=== PATIENT | male | born 1955 | race Caucasian/White ===

== ENCOUNTER 2022-04-28 00:38 | Day surgery (SDC) | payer OTHER, SELFPAY ==
[2022-04-14 15:11] VITALS: BMI 26.9
[2022-04-28 08:15] VITALS: BP 165/93; PULSE 72; RESP 19; TEMP 36.1; O2SAT 99; BMI 28.1
--- NOTE | 2022-04-28 08:33 | PM.HPGS ---
History of Present Illness History of Present Illness Consent: Risks, benefits, and alternatives have been discussed and questions answered. Patient agrees to proceed with procedure. Chief complaint: neoplasm screening Narrative: Len Leonard is a 67 year old male Presents for screening colonoscopy. Patient's current weight appetite bowel movements are normal. Patient denies abdominal pain. He has had no bleeding. Family history is significant his mother had colon cancer. Patient does report a colon polyp bike screening colonoscopy 6 years ago. Patient presents today for screening colonoscopy. Review of Systems Review of Systems: Review of systems noncontributory. [facility] Past Medical History Medical History (Updated 04/28/22 @ 08:35 by eLn Dubose MD) Abnormal colonoscopy 06/06 Polyp Repeat 06/11 Surgical History Surgical History (Updated 04/05/21 @ 08:02 by Cornelius Montanez MD) History of inguinal hernia repair Left 2014 Family History Family History (Updated 04/05/21 @ 07:57 by Cornelius Montanez MD) Mother Family history of respiratory disorder Patient's mother is Parkinsons disease Father Family history of heart disease in male family member before age 55 Hypertension Other Diabetes mellitus Family history of cardiovascular disease Family history of malignant neoplasm Social History Social History (Updated 04/06/21 @ 10:15 by Lori Mcfadden MA) Smoking packs per day: 1 Smoking cigarettes per day: 20.0 Years smoked: 5 Smoking pack-years: 5.00 Smoking status: Former smoker Alcohol intake: current Drinks per week: 5 Alcohol use details: on occasion Substance use: never Substance use type: does not use Living arrangements: alone Gender identity (if verbalized by the patient): Male Sexual Orientation (if Verbalized by the Patient): Straight or Heterosexual Spiritual care concerns: No Agree to blood products: Yes Meds Home Medications and Allergies Home Medications Medication Instructions Recorded Confirmed Type cholecalciferol (vitamin D3) 25 25 mcg PO DAILY 04/06/21 04/14/22 History mcg (1,000 unit) capsule glucosamine 500 1 cap PO DAILY 04/06/21 04/14/22 History fg-qnmadlxfs-mgekhxzb comp 400 mg-D3 667 unit-C-Mn cap (Lixoopnziru-Jjrizjciqno-U6(C-manganese)) zlwfyaoe-fnt-udyhg acid 300 1 tablet PO DAILY 04/06/21 04/14/22 History mcg-lycopene 600 mcg-lutein 300 mcg tablet (Men 50 Plus Multivitamin) naproxen sodium 220 mg capsule 220 mg PO .as needed PRN Pain 04/06/21 04/14/22 History (Aleve) lisinopril 20 mg tablet 20 mg PO DAILY #90 tabs 02/28/22 04/14/22 Rx sodium,potassium,mag sulfates 17.5 See Rx Instructions PO .COMPLEX 03/28/22 04/14/22 Rx gram-3.13 gram-1.6 gram oral soln #354 mL (Suprep Bowel Prep Kit) atorvastatin 40 mg tablet See Rx Instructions .Route 04/24/22 Rx .COMPLEX #90 tabs Allergies Allergy/AdvReac Type Severity Reaction Status Date / Time No Known Allergies Allergy Verified 04/14/22 15:09 Vital Signs Vital Signs - 24 hr 04/28/22 08:15 Temperature 97 F L Pulse Rate 72 Respiratory Rate 19 Blood Pressure 165/93 H Pulse Oximetry 99 Oxygen Delivery Room Air Exam Narrative: Physical exam reveals patient to be alert. Vital signs stable. HEENT exam is unremarkable. Patient is anicteric. Lungs are clear to auscultation and percussion. Heart is without murmur or extra sounds. Abdomen bowel sounds are present soft nontender with no organomegaly. Digital external rectal exam is normal. Assessment and Plan Assessment and plan (1) History of colon polyps: Code(s): Z86.010 - Personal history of colonic polyps Status: Acute Assessment and Plan: Patient has a history of adenomatous colon polyp removed from the colon 6 years ago. Follow-up colonoscopy advised now on a 5 year intervals. (2) Leah
[2022-04-28] MEDS: LACTATED RINGERS 1,000 ML 150 ML IV CONT (08:35)
--- NOTE | 2022-04-28 08:53 | WPDANESEPPF ---
Anes - Initial Pre Proc Eval Procedure: Operation Date: 04/28/22 09:00 Proposed Procedures p Screening Colonoscopy - Len Dubose MD Date/Time: 04/28/22 08:53 Surgeon: Len Dubose MD Pre Op Diagnosis: neoplasm screening Patient Data Age: 67 Gender: M Height: 1.83 m Weight: 94.1 kg Last Vital Signs Temp 97 F L 04/28/22 08:15 Pulse 72 04/28/22 08:15 Resp 19 04/28/22 08:15 BP 165/93 H 04/28/22 08:15 Pulse Ox 99 04/28/22 08:15 O2 Del Method Room Air 04/28/22 08:15 Allergies Allergy/AdvReac Type Severity Reaction Status Date / Time No Known Allergies Allergy Verified 04/14/22 15:09 Home Medications Medication Instructions Recorded Confirmed Type cholecalciferol (vitamin D3) 25 25 mcg PO DAILY 04/06/21 04/14/22 History mcg (1,000 unit) capsule glucosamine 500 1 cap PO DAILY 04/06/21 04/14/22 History dt-fckjffjiu-sfanfqga comp 400 mg-D3 667 unit-C-Mn cap (Iunjuygocsi-Vjuxoteusgq-L7(C-manganese)) degfyvcf-mhd-gvbci acid 300 1 tablet PO DAILY 04/06/21 04/14/22 History mcg-lycopene 600 mcg-lutein 300 mcg tablet (Men 50 Plus Multivitamin) naproxen sodium 220 mg capsule 220 mg PO .as needed PRN Pain 04/06/21 04/14/22 History (Aleve) lisinopril 20 mg tablet 20 mg PO DAILY #90 tabs 02/28/22 04/14/22 Rx sodium,potassium,mag sulfates 17.5 See Rx Instructions PO .COMPLEX 03/28/22 04/14/22 Rx gram-3.13 gram-1.6 gram oral soln #354 mL (Suprep Bowel Prep Kit) atorvastatin 40 mg tablet See Rx Instructions .Route 04/24/22 Rx .COMPLEX #90 tabs Patient hx anesthesia problems: none Family hx anesthesia problems: none Results Review: All pre-operative results and documents have been reviewed as part of the pre-operative evaluation. [facility] Past Medical History Medical History (Updated 04/28/22 @ 08:35 by Len Dubose MD) Abnormal colonoscopy 06/06 Polyp Repeat 06/11 Surgical History Surgical History (Updated 04/05/21 @ 08:02 by Cornelius Montanez MD) History of inguinal hernia repair Left 2015 Family History Family History (Updated 04/05/21 @ 07:57 by Cornelius Montanez MD) Mother Family history of respiratory disorder Patient's mother is Parkinsons disease Father Family history of heart disease in male family member before age 55 Hypertension Other Diabetes mellitus Family history of cardiovascular disease Family history of malignant neoplasm Social History Social History (Updated 04/06/21 @ 10:15 by Lori Mcfadden MA) Smoking packs per day: 1 Smoking cigarettes per day: 20.0 Years smoked: 5 Smoking pack-years: 5.00 Smoking status: Former smoker Alcohol intake: current Drinks per week: 5 Alcohol use details: on occasion Substance use: never Substance use type: does not use Living arrangements: alone Gender identity (if verbalized by the patient): Male Sexual Orientation (if Verbalized by the Patient): Straight or Heterosexual Spiritual care concerns: No Agree to blood products: Yes Anes - Eval Final PreProcedure Day of Procedure 04/28/22 08:53 Patient weight: normal Heart: regular rate and rhythm Lungs: clear to auscultation Airway: Mallampati scale class II Neurological: alert and oriented Last oral intake: >/= 8 hours ASA classification: II Emergent: no Anesthetic plan: proceed Anesthesia type and monitoring: general GIVS and standard monitoring Results Review: All pre-operative results and documents have been reviewed as part of the pre-operative evaluation. Informed Consent: The patient's anesthetic plan and its attendant risks and benefits were discussed with the patient/family/POA. Questions were solicited and answers provided to the satisfaction of the patient/family/POA.
[2022-04-28] MEDS: SIMETHICONE ORAL SUSPENSION 20 MG/0.3 ML 30 ML BOTTLE 0.6 ML IRRIGATION (09:09)
[2022-04-28 09:17] VITALS: BP 104/66; PULSE 78; RESP 20; O2SAT 97
[2022-04-28 09:27] VITALS: BP 110/68; PULSE 74; RESP 18; O2SAT 97
[2022-04-28 09:37] VITALS: BP 143/96; PULSE 70; RESP 20; O2SAT 99
== END 2022-04-28 09:48 | disposition home or self-care (01) ==
PROVIDERS: PCP Family Medicine Adolescent Medicine; Visit Provider Internal Medicine Gastroenterology
PROC: 0DJD8ZZ Inspection of Lower Intestinal Tract, Via Natural or Artificial Opening Endoscopic (ICD-10-PCS; CPT 45378; principal; 2022-04-28 09:00)
DX: Z12.11 Encounter for screening for malignant neoplasm of colon (principal); K57.30 Diverticulosis of large intestine without perforation or abscess without bleeding; Z86.010 Personal history of colon polyps; Z80.0 Family history of malignant neoplasm of digestive organs; Z87.891 Personal history of nicotine dependence
CPT/HCPCS: G0105; J2704; J7120

== ENCOUNTER 2023-04-17 11:21 | Outpatient (CLI) | payer OTHER, SELFPAY ==
[2023-04-17 12:13] LABS: Alanine Aminotransferase 28 U/L (6-50); Albumin Level 4.4 g/dL (3.5-5.1); Alkaline Phosphatase 65 U/L (38-126); Anion Gap 5 mmol/L (8-16); Aspartate Amino Transferase 33 U/L (17-59); Bilirubin,Total 0.8 mg/dL (0.2-1.3); Blood Urea Nitrogen 12 mg/dL (9-20); Calcium 9.4 mg/dL (8.4-10.2); Carbon Dioxide 28 mmol/L (22-30); Chloride 104 mmol/L (98-107); Cholesterol 162 mg/dL (0-200); Estimated Glomerular Filt Rate > 60; Glucose 101 mg/dL (65-110); HDL Direct 91 mg/dL; Potassium 4.7 mmol/L (3.4-5.0); Sodium 137 mmol/L (137-145); Triglycerides 95 mg/dL (<150)
[2023-04-17 12:23] LABS: LDL Cholesterol Direct 64 mg/dL
== END 2023-04-17 11:22 | disposition home or self-care (01) ==
LOC: ANHLAB 11:25
PROVIDERS: PCP Family Medicine Adolescent Medicine; Visit Provider Family Medicine Adolescent Medicine
DX: E78.00 Pure hypercholesterolemia, unspecified (principal); I10 Essential (primary) hypertension
CPT/HCPCS: 36415; 80053; 80061

== ENCOUNTER 2024-04-03 08:43 | Outpatient (CLI) | payer OTHER, SELFPAY ==
--- NOTE | ~2024-04-03 | XR_ITS ---
EXAMINATION: [id number]_[id number]_CR DATE: 04/03/2024 09:26 INDICATION: Left knee pain. TECHNIQUE: 2 views of left knee including weight-bearing views were obtained. COMPARISON: None. FINDINGS: Alignment is normal. No fracture. There is mild osteoarthritis of patellofemoral compartmen t. There is an enthesophyte at the proximal attachment of medial collateral ligament. No knee joint e ffusion. IMPRESSION: 1. Mild left knee osteoarthritis. Reviewed, dictated and finalized at location A. [facility] S[facility]
--- NOTE | ~2024-04-03 | XR_ITS ---
Right Knee Technique: AP, lateral, and sunrise views were obtained. Clinical History: Pain Findings: No fracture or dislocation is seen. Osseous alignment is anatomic. Minimal degenerative molly nge present at any. Soft tissues are unremarkable. No joint effusion is seen. Impression: Minimal degenerative change. No acute abnormality. Reviewed, dictated and finalized at [facility]. ERER Impression: Minimal degenerative change. No acute abnormality.
--- OUTSIDE RECORDS SUMMARY | 2024-04-03 09:11 | XMS_ITS | Clinical Summary ---
Author Organization [facility] [employer] Address [address] [place] [address] Care Team Providers Care Dye House Worker Name Role Phone Cornelius Montanez MD Primary Care Provider + Ramiro Garcia MD Unavailable [phone] Source Comments [facility] [employer],non-owned Affiliates and Associated Physician Practices is amultiple site organization consisting of ambulatory clinics and hospital sitesin [place] and [place]. This disclosure is being madepursuant to the Care Everywhere program and may not contain all informatio navailable regarding this patient. Last updated 17.[facility] [employer] Allergies No known active allergies Medications * Be aware that medications may not be up to date on this document. Alwaysverify current medications with the patient. Medication Sig Dispensed Refills Start Date End Date Status lisinopril (PRINIVIL; ZESTRIL) 20 MG tablet Take 1 tablet by mouth once daily 03/23/2020 Active ORACEA 40 MG capsule Take 1 capsule by mouth once daily 04/30/2020 Active sildenafil (VIAGRA) 100 MG tablet Take 1 tablet by mouth once daily 05/07/2020 Active meloxicam (MOBIC) 15 MG tablet Take 1 (one) tablet by mouth once daily 30 tablet 5 05/11/2020 Active Active Problems Problem Noted Date Diagnosed Date Primary osteoarthritis of right knee 05/11/2020 Social History Tobacco Use Types Packs/Day Years Used Date Smoking Tobacco: Never Smokeless Tobacco: Never Sex and Gender Information Value Date Recorded Sex Assigned at Not on file Gender Identity Not on file Sexual Orientation Not on file Last Filed Vital Signs Vital Sign Reading Time Taken Comments Blood Pressure - - Pulse - - Temperature - - Respiratory Rate - - Oxygen Saturation - - Inhaled Oxygen Concentration - - Weight 83.9 kg (185 lb) 05/11/2020 3:22 PM CDT Height 182.9 cm (6') 05/11/2020 3:22 PM CDT Body Mass Index 25.09 05/11/2020 3:22 PM CDT Plan of Treatment Health Maintenance Due Date Last Done Comments COLOGUARD (AGES 45-75) - COL ON CA SCREENING 1953 COLON MONITORING 1953 COLONOSCOPY - COLON CA SCREENING 1953 CT COLONOGRAPHY - COLON CA SCREENING 1953 Colorectal Cancer Screening 1953 FIT - COLON CA SCREENING 1953 FLEX SIG - COLON CA SCREENING 1953 LIPID TESTING 1953 HEPATITIS C SCREENING 02/08/1971 DTAP/TDAP/TD VACCINES (1 - Tdap) 02/13/1972 PNEUMOCOCCAL VACCINE 50+ (1 of 1 - PCV) 2003 ZOSTER VACCINE (1 of 2) 2003 SCREENING FOR DIABETES 05/11/2020 COVID-19 VACCINE (1 - 2023-2 5 season) 2023 INFLUENZA VACCINE (#1) 2023 DEPRESSION SCREENING 02/21/2024 Respiratory Syncytial Virus (RSV) Vaccine Pt: or over 60 yrs (1 - 1-dose 75+ series) 02/13/2028 HEPATITIS B VACCINE Aged Out No longe r eligible based on patient's age to complete this topic HIB VACCINE Aged Out No longer eligi ble based on patient's age to complete this topic HPV VACCINE Aged Out No longer eligi ble based on patient's age to complete this topic MENINGOCOCCAL (Group B) VACCINE Aged Out No longer eligible based on patient's age to complete this topic MENINGOCOCCAL VACCINE Aged Out No noah portillo eligible based on patient's age to complete this topic Care Teams Dye House Worker Relationship Specialty Start Date End Date Cornelius Montanez MD [address] [facility] [address] [place] [address] PCP - General Family Medicine 05/11/20 [place] [id number] [facility] [address] [place] [address] Surgeon Orthopedic Surgery 05/11/20
--- OUTSIDE RECORDS SUMMARY | 2024-04-03 09:11 | XMS_ITS | Clinical Summary ---
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 Gender Identity Not on file Sexual Orientation Not on file Plan of Treatment Health Maintenance Due Date Last Done Comments DTAP/TDAP/TD VACCINES (1 - Tdap) 02/13/1972 COLORECTAL SCREENING 1998 Colorectal Cancer Screening 1998 FIT-DNA Q 3 years 1998 FIT/FOBT Q 1 year 1998 Flex Sig/CT Colonography Q 5 years 1998 PNEUMOCOCCAL VACCINE 65+ YEARS (1 of 1 - PCV) 02/13/20 03 ZOSTER VACCINE (1 of 2) 2003 INFLUENZA VACCINE (#1) 2023 RSV VACCINE (60+ or ) (1 - 1-dose 75+ series) 02/13/[address] [place] [address] BLUE ACCESS/TRUE BLUE PPO Care Teams Frame Aligner Relationship Specialty Start Date End Date Cornelius Montanez MD [address] [address] PCP - General Family Practice 03/14/18
--- OUTSIDE RECORDS SUMMARY | 2024-04-03 09:11 | XMS_ITS | Patient Health Summary ---
Author Organization [facility] Address [address] [place] [address] Care Team Providers Care Wrap Checker Name Role Phone Cornelius Montanez MD Primary Care Provider + Ramiro Garcia MD Unavailable [phone] Note from [facility],non-owned Affiliates and Associated Physician Practices is amultiple site organization consisting of ambulatory clinics and hospital sitesin [place], [place], [place] and [place]. This disclosure is being madepursuant to the Care Everywhere program and may not contain all information available regarding this patient. Last updated 17.[facility] Allergies No known active allergies Medications * Be aware that medications may not be up to date on this document. Alwaysverify current medications with the patient. * lisinopril (PRINIVIL; ZESTRIL) 20 MG tablet(Started 03/23/2020) Take 1 tablet by mouth once daily * ORACEA 40 MG capsule(Started 04/30/2020) Take 1 capsule by mouth once daily * sildenafil (VIAGRA) 100 MG tablet(Started 05/07/2020) Take 1 tablet by mouth once daily * meloxicam (MOBIC) 15 MG tablet(Started 05/11/2020) Take 1 (one) tablet by mouth once daily 5 refills by 05/11/2021 Active Problems Problem Noted Date Diagnosed Date [...] Mass Index 25.09 05/11/2020 3:22 PM CDT Procedures * XR KNEE RIGHT 3VW(Performed 05/11/2020) Performed for Right knee pain, unspecified chronicity Results * XR KNEE RIGHT 3VW (05/11/2020 3:32 PM CDT) Anatomical Region Laterality Modality Lower Extremity Computed Radiogr aphy Narrative 05/11/2020 3:33 PM CDT Jacinta Manuel, RT(R) 05/21/2020 12:02 PM See progress notes for results Ramiro Garcia MD DIAGNOSTIC IMAGING O RDERABLES Care Teams Wrap Checker Relationship Specialty Start Date End Date Cornelius Montanez MD [address] [facility] [address] [place] [address] PCP - General Family Medicine 05/11/20 [place] [address] [facility] [address] [place] [address] Surgeon Orthopedic Surgery 05/11/20
--- OUTSIDE RECORDS SUMMARY | 2024-04-03 09:11 | XMS_ITS | Referral Summary ---
Author Organization [facility] [employer] Address [address] [place] [address] Care Team Providers Care Turner Machine Operator Name Role Phone Cornelius Montanez MD Primary Care Provider + Ramiro Garcia MD Unavailable [phone] Source Comments [facility] [employer],non-owned Affiliates and Associated Physician Practices is amultiple site organization consisting of ambulatory clinics and hospital sitesin [place], [place], [place] and [place]. This disclosure is being madepursuant to the Care Everywhere program and may not contain all information available regarding this patient. Last updated 17.[facility] [employer] Allergies No known active allergies Medications * [...] 05/11/2020 3:22 PM CDT Plan of Treatment Not on file Care Teams Turner Machine Operator Relationship Specialty Start Date End Date Cornelius Montanez MD [address] [facility] [address] [place] [address] PCP - General Family Medicine 05/11/20 [place] [address] [place] [address] Surgeon Orthopedic Surgery 05/11/20
== END 2024-04-03 08:44 | disposition home or self-care (01) ==
PROVIDERS: PCP Family Medicine Adolescent Medicine; Visit Provider Orthopaedic Surgery
DX: M25.562 Pain in left knee (principal); M25.561 Pain in right knee
CPT/HCPCS: 73560; 73562

== ENCOUNTER 2024-06-06 09:54 | Outpatient (CLI) | payer OTHER, SELFPAY ==
--- OUTSIDE RECORDS SUMMARY | 2024-06-06 10:40 | XMS_ITS | Clinical Summary ---
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 Gender Identity Not on file Sexual Orientation Not on file Plan of Treatment Health Maintenance Due Date Last Done Comments DTAP/TDAP/TD VACCINES (1 - Tdap) 02/13/1972 COLORECTAL SCREENING 1998 Colorectal Cancer Screening 1998 FIT-DNA Q 3 years 1998 FIT/FOBT Q 1 year 1998 Flex Sig/CT Colonography Q 5 years 1998 PNEUMOCOCCAL VACCINE 50+ YEARS (1 of 1 - PCV) 02/13/20 03 ZOSTER VACCINE (1 of 2) 2003 INFLUENZA VACCINE (#1) 2023 RSV VACCINE (60+ or ) (1 - 1-dose 75+ series) 02/13/[address] [place] [address] [address] [place] [address] BLUE ACCESS/TRUE BLUE PPO Care Teams Product Blending Supervisor Relationship Specialty Start Date End Date Cornelius Montanez MD PCP - General Family Practice 03/14/18
--- OUTSIDE RECORDS SUMMARY | 2024-06-06 10:40 | XMS_ITS | Clinical Summary ---
Author Organization [facility] [employer] Address [address] [facility] [place] [address] Care Team Providers Care Regulatory Affairs Coordinator Name Role Phone Cornelius Montanez MD Primary Care Provider + Ramiro Garcia MD Unavailable Source Comments [facility] [employer],non-owned Affiliates and Associated Physician Practices is amultiple site organization consisting of ambulatory clinics and hospital sitesin [place]. This disclosure is being madepursuant to the Care Everywhere program and may not contain all information available regarding this patient. Last updated 17.[facility] [employer] Allergies No known active allergies Medications * Be aware that medications may not be up to date on this document. Alwaysverify current medications with the patient. 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 Gender Identity Not on file Sexual Orientation [...] VACCINE (1 - 2023-2 5 season) 2023 DEPRESSION SCREENING 02/21/2024 INFLUENZA VACCINE (Season Ended) 2024 Respiratory Syncytial Virus (RSV) Vaccine Pt: or [...] to complete this topic MENINGOCOCCAL (Group B) VACC INE SHARED DECISION-MAKING Aged Out No longer eligibl e based on patient's age to complete this topic MENINGOCOCCAL GROUPS A/C/Y/W VACCINE Aged Out No longer eligible b ased on patient's age to complete this topic Insurance TAB[employer] Care Teams Regulatory Affairs Coordinator Relationship Specialty Start Date End Date Cornelius Montanez MD [address] [facility] [address] [place] [address] PCP - General Family Medicine 05/11/20 [place] [address] [facility] [address] [place] [address] Surgeon Orthopedic Surgery 05/11/20
--- NOTE | 2024-06-06 11:35 | ECG_ITS ---
Test Date: 2024-06-06 11:51:03 Measurements Intervals [place] Rate: 66 P: 21 DE: 200 QRS: 17 QRSD: 89 T: 3 QT: 381 QTc: 402 Interpretive Statements SINUS RHYTHM BORDERLINE ST-T WAVE ABNORMALITY- INFERIOR LEADS BASELINE ARTIFACT- AVR, AVF, V1, V4-V6 BORDERLINE ECG No previous ECG available for comparison Electronically Signed On 06-06-2024 12:00:03 CDT by Alexis Morton D.O.
[2024-06-06 12:19] LABS: Basophils Absolute Auto 0.1 K/mm3 (0.0-0.1); Basophils Percent Auto 0.5 % (0.2-1.2); Eosinophils Percent Auto 0.2 % (0-4.4); Hemoglobin 13.4 g/dL (14.0-18.0); Immature Granulocyte Absolute 0.03 K/mm3 (0.00-0.031); Immature Granulocyte Percent A 0.3 % (0-0.5); Lymphocytes Absolute Auto 1.95 K/mm3 (0.9-3.2); Lymphocytes Percent Auto 20.7 % (18.3-44.2); Mean Corpuscular HGB Conc 32.7 g/dl (32-36); Mean Corpuscular Hemoglobin 30.9 pg (26-34); Mean Corpuscular Volume 94.5 fl (80-100); Monocytes Absolute Auto 0.6 K/mm3 (0.1-0.6); Monocytes Percent Auto 6.4 % (2.6-8.5); Neutrophils Absolute Auto 6.8 K/mm3 (1.3-6.7); Neutrophils Percent Auto 71.9 % (45.5-73.1); Platelet Count Result 245 k/mm3 (150-375); Red Blood Count 4.34 M/mm3 (4.6-6.20); Red Cell Distribution Width 12.6 % (11.5-14.5); White Blood Count 9.4 K/mm3 (4.5-10.0)
[2024-06-06 12:30] LABS: Albumin Level 4.9 g/dL (3.5-5.1); Anion Gap 13 mmol/L (4-12); Blood Urea Nitrogen 14 mg/dL (9-20); Calcium 9.8 mg/dL (8.4-10.2); Carbon Dioxide 22 mmol/L (22-30); Chloride 102 mmol/L (98-107); Estimated Glomerular Filt Rate > 60; Glucose 89 mg/dL (65-110); Potassium 4.3 mmol/L (3.4-5.0); Sodium 137 mmol/L (137-145)
[2024-06-06 12:38] LABS: Urine Cotinine NEGATIVE
[2024-06-06 12:43] LABS: Hemoglobin A1C 5.4 % (<5.7)
== END 2024-06-06 09:55 | disposition home or self-care (01) ==
LOC: ANHSURGERY 09:59
PROVIDERS: PCP Family Medicine Adolescent Medicine; Visit Provider Orthopaedic Surgery
DX: Z01.818 Encounter for other preprocedural examination (principal); M17.11 Unilateral primary osteoarthritis, right knee
CPT/HCPCS: 80048; 80307; 82040; 83036; 85025; 87081; 93005

== ENCOUNTER 2024-06-27 00:28 | Day surgery (SDC) | payer OTHER, SELFPAY ==
[2024-06-06 10:25] VITALS: BP 133/83; PULSE 83; RESP 16; TEMP 36.8; O2SAT 97; BMI 27.2
--- NOTE | 2024-06-06 10:48 | PC.NURSE ---
Report to the Outpatient Waiting Room, entrance under the green pavilion located off [facility], at time ___6:00AM____ on date ___06/27/24____. Planned Procedure Time: ____7:30AM____.? Time changes happen often and if your time is changed the preop area will call you the afternoon before. - You and your visitor will be asked to self-screen and do not enter if you have any COVID symptoms. Please call surgeon if you need to reschedule. - A mask is optional within the hospital at this time. Patients may have clear liquids (water, carbonated beverages, clear teas, apple juice) until 3 hours prior to surgery (4:30AM) with a maximum of 20 ounces. - No food from midnight until time of surgery and no smoking, or chewing tobacco (or any form of nicotine). No chewing gum, candy or mints. Take only the following medications with a SIP of water on the morning of surgery: ___NONE DO NOT STOP ANY OF YOUR OTHER PRESCRIPTION MEDICATIONS PRIOR TO SURGERY EXCEPT THE FOLLOWING Hold all vitamins and supplements for 3 days per anesthesiologist.-LAST DOSE 06/23/24 Medications to discontinue per physician __HOLD ALL NSAIDS(NAPROXEN/IBUPROFEN) 7 DAYS PRE-OP PER DR ORTEZ Date to take last dose 06/19/24 Please no make-up, nail slovenian, hairspray, perfume, deodorant, or body powder the day of surgery.? No jewelry (including any body piercings) or valuables the day of surgery, leave them at home.? Please take a shower or bath the night before, or the morning of, surgery with an antibacterial soap.? Wear comfortable, loose fitting clothing.? - Jewelry must be removed prior to entering the operating room.? Rings and piercings that are not removed may be cut off. - The hospital will not accept responsibility for valuables.? - Please leave all valuables, including medications, at home the day of surgery. If you are going home after surgery, a licensed driver/refuse collector must drive you home.? - NO public transportation without another adult if you receive anesthesia. - We recommend that an adult stay with you for 24 hours following discharge. - We also recommend that you do not drive, make important decision, drink alcoholic beverages, or take any drugs that were not prescribed by your health care provider for at least 24 hours after your discharge time. Follow any additional instructions given to you from your surgeon. Telephone instructions given to ____PATIENT and asked if any additional questions and then verbalized understanding. Patient advised to call surgeon office or pre surgery nurse liaison [phone] if any additional questions.
--- NOTE | 2024-06-26 07:52 | P.HP_ITS ---
H&P: HPI History of Present Illness Date/Time: 06/26/24 07:52 Chief Complaint: Right knee DJD Narrative: 69-year-old male presents today for right total knee arthroplasty. Patient has been having symptoms in the right knee for several years. He has severe lateral compartment osteoarthritis he has been taking cjpf-dur-bskofos anti- inflammatories. He had a cortisone injection February of this year which only h elped briefly. Patient feels this point is ready proceed with total knee arthroplasty rather than continue nonsurgical treatment Review of Systems Review of Systems: All systems reviewed & are unremarkable except as noted in HPI and below PMFSH Past Medical History Medical History (Updated 06/26/24 @ 08:29 by ELMER Warner) High cholesterol Hypertension Abnormal colonoscopy 06/06 Polyp Repeat 06/11 Surgical History Surgical History History of inguinal hernia repair Left 2014 Family History Family History Mother Family history of respiratory disorder Patient's mother is Parkinsons disease Father Family history of heart disease in male family member before age 55 Hypertension Other Diabetes mellitus Family history of cardiovascular disease Family history of malignant neoplasm Social History Social History (Updated 04/03/24 @ 10:01 by Payal Schaffer [facility]) Smoking packs per day: 0.75 Smoking cigarettes per day: 15.0 Years smoked: 5 Smoking pack-years: 3.75 Smoking status: Former smoker Tobacco type: cigarettes Smoking end date: 08/20/77 Alcohol intake: current Drinks per week: 28 Alcohol use details: on occasion Substance use: never Substance use type: does not use Do You Feel Safe in your Home?: Yes Lack of Transportation: No Lack of Food: Never True Current Housing: I Have Housing Concerned About Future Housing: No Difficulty Paying Gas/Electric Bills: No Difficulty Paying for Meds: No Currently Unemployed: No Education: High School Diploma/GED Difficulty w/ Childcare or Family Care: No Living arrangements: alone Gender identity (if verbalized by the patient): Male Sexual Orientation (if Verbalized by the Patient): Straight or Heterosexual Spiritual care concerns: No Agree to blood products: Yes Meds Home Medications and Allergies Home Medications ?Medication ?Instructions ?Recorded ?Confirmed ?Type zewhxatx-sq-dermz 300 mcg-K 60 1 tablet PO DAILY 04/06/21 06/10/24 History mcg-lycop 600 mcg-lutein 300 mcg tablet (Men 50 Plus Multivitamin) atorvastatin 40 mg tablet See Rx Instructions .Route 10/22/23 06/10/24 Rx .COMPLEX #90 tabs lisinopril 20 mg tablet See Rx Instructions .Route 02/12/24 06/10/24 Rx .COMPLEX #90 tabs ibuprofen 200 mg capsule 400 mg PO Q6H PRN pain 04/03/24 06/10/24 History UROZINC 400 mg PO DAILY 06/06/24 06/10/24 History latanoprost 0.005 % eye drops 1 drp EACH EYE QPM 06/06/24 06/10/24 History sildenafil 100 mg tablet 100 mg PO DAILY PRN sexual 06/10/24 06/10/24 Rx activity #7 tabs Allergies Allergy/AdvReac Type Severity Reaction Status Date / Time No Known Allergies Allergy Verified 06/10/24 09:53 Exam Narrative: 69-year-old male pleasant. He is 5 ft 1 0 100 and lb is 2. Walks without limp. Range of motion right knee is from 5-120 degrees. He has pain posterior lateral with full flexion. No effusion in the knee. He has normal stability in the knee. No tenderness. Mild valgus alignment. Hip range of motion is full without discomfort, negative Stinchfield maneuver. Normal quad strength. Normal sensation right lower extremity. 2+ dorsalis pedis pulse palpable. No edema in the right lower extremity Resp: Auscultation: clear to auscultation bilaterally Cardio: Rate: regular rate Rhythm: regular rhythm Assessment and Plan Assessment and plan (1) Right knee DJD: Code(s): M17.11 - Unilateral primary osteoarthritis, right knee Status: Acute Assessment and Plan: 69-year-old male who has severe lateral osteoarthritis the right knee with continued symptoms. At this point patient is not feel nonsurgical treatment his benefit he him and he would like to proceed with total knee arthroplasty at this point. Surgical procedure as well as the risks and complications were discussed in detail all questions were answered and we will proceed. Patient will avoid his naproxen and any other aspirin ibuprofen products 1 week prior to surgery. He will see his primary care doctor for pre-surgical clearance per his nasal swab was negative. Hemoglobin 13.4 platelets were 245. Chem panel was all within normal limits creatinine 0.71
[2024-06-27] VITALS (17 sets, daily range): BP systolic 112–148; BP diastolic 63–86; PULSE 63–95; RESP 11–18; TEMP 36.2–37; O2SAT 92–100; BMI 27.0
--- NOTE | ~2024-06-27 | XR_ITS ---
[id number] Ordering provider: Timi Asher MD History: . POST-OP, RIGHT TKA . Comparison: None. FINDINGS: BONES: No acute fracture or dislocation. JOINT SPACES: Total knee arthroplasty. SOFT TISSUES: Postoperative changes.. IMPRESSION: No acute osseous abnormality right knee. Total knee arthroplasty with postoperative changes in the soft tissues.. Reviewed, dictated and finalized at location A.
--- OUTSIDE RECORDS SUMMARY | 2024-06-27 00:30 | XMS_ITS | Clinical Summary ---
Author Organization [facility] Address [address] [place] [address] Care Team Providers Care Instructional Coordinator Name Role Phone Cornelius Montanez MD Primary Care Provider + Ramiro Garcia MD Unavailable [phone] Source Comments [facility],non-owned Affiliates and Associated Physician Practices is amultiple site organization consisting of ambulatory clinics and hospital sitesin [place], [place], [place] and [place]. This disclosure is being madepursuant to the Care Everywhere program and may not contain all information available regarding this patient. 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
--- OUTSIDE RECORDS SUMMARY | 2024-06-27 00:30 | XMS_ITS | Clinical Summary ---
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
[2024-06-27] MEDS: LACTATED RINGERS 1,000 ML 30 ML IV CONT ×2 (06:50→11:45)
[2024-06-27] MEDS: VANCOMYCIN 1,250 MG/NS 250 ML 1,250 MG/250 ML BAG 166.67 MG IVPB (07:00)
[2024-06-27] MEDS: ACETAMINOPHEN 500 MG TABLET 1000 MG PO (07:01)
[2024-06-27] MEDS: TRANEXAMIC ACID 1,000MG/ISO100 1,000 MG/100 ML BAG 200 MG IVPB (07:01)
--- NOTE | 2024-06-27 07:18 | WPDANESEPPF ---
Anes - Initial Pre Proc Eval Procedure: Operation Date: 06/27/24 07:30 Proposed Procedures p Right Total Knee Arthroplasty - Timi Asher MD Date/Time: 06/27/24 07:18 Surgeon: Timi Asher MD Pre Op Diagnosis: oa right knee Patient Data Age: 69 Gender: M Height: 1.8 m Weight: 88.6 kg Last Vital Signs Temp 98.2 F 06/06/24 10:25 Pulse 83 06/06/24 10:25 Resp 16 06/06/24 10:25 BP 133/83 06/06/24 10:25 Pulse Ox 97 06/06/24 10:25 O2 Del Method Room Air 06/06/24 10:25 Allergies Allergy/AdvReac Type Severity Reaction Status Date / Time No Known Allergies Allergy Verified 06/10/24 09:53 Home Medications ?Medication ?Instructions ?Recorded ?Confirmed ?Type ekqvzjij-li-mpeml 300 mcg-K 60 1 tablet PO DAILY 04/06/21 06/10/24 History mcg-lycop 600 mcg-lutein 300 mcg tablet (Men 50 Plus Multivitamin) atorvastatin 40 mg tablet See Rx Instructions .Route 10/22/23 06/10/24 Rx .COMPLEX #90 tabs lisinopril 20 mg tablet See Rx Instructions .Route 02/12/24 06/10/24 Rx .COMPLEX #90 tabs ibuprofen 200 mg capsule 400 mg PO Q6H PRN pain 04/03/24 06/10/24 History UROZINC 400 mg PO DAILY 06/06/24 06/10/24 History latanoprost 0.005 % eye drops 1 drp EACH EYE QPM 06/06/24 06/10/24 History sildenafil 100 mg tablet 100 mg PO DAILY PRN sexual 06/10/24 06/10/24 Rx activity #7 tabs Laboratory Tests 06/27/24 06:39 Blood Type Pending Antibody Screen Pending Patient hx anesthesia problems: none Family hx anesthesia problems: none Results Review: All pre-operative results and documents have been reviewed as part of the pre-operative evaluation. [facility] Past Medical History Medical History High cholesterol Hypertension Abnormal colonoscopy 06/06 Polyp Repeat 06/11 Surgical History Surgical History History of inguinal hernia repair Left 2015 Family History Family History Mother Family history of respiratory disorder Patient's mother is Parkinsons disease Father Family history of heart disease in male family member before age 55 Hypertension Other Diabetes mellitus Family history of cardiovascular disease Family history of malignant neoplasm Social History Social History Smoking packs per day: 1 Smoking cigarettes per day: 20.0 Years smoked: 5 Smoking pack-years: 5.00 Smoking status: Former smoker Tobacco type: cigarettes Smoking end date: 08/20/77 Alcohol intake: current Drinks per week: 5 Alcohol use details: on occasion Substance use: never Substance use type: does not use Do You Feel Safe in your Home?: Yes Lack of Transportation: No Lack of Food: Never True Current Housing: I Have Housing Concerned About Future Housing: No Difficulty Paying Gas/Electric Bills: No Difficulty Paying for Meds: No Currently Unemployed: No Education: High School Diploma/GED Difficulty w/ Childcare or Family Care: No Living arrangements: alone Gender identity (if verbalized by the patient): Male Sexual Orientation (if Verbalized by the Patient): Straight or Heterosexual Spiritual care concerns: No Agree to blood products: Yes Anes - Eval Final PreProcedure Day of Procedure 06/27/24 07:18 Patient weight: overweight Lungs: normal air movement Airway: Mallampati scale class II Neurological: alert and oriented Last oral intake: >/= 8 hours ASA classification: III Emergent: no Anesthetic plan: proceed Anesthesia type and monitoring: general ETT and standard monitoring Results Review: All pre-operative results and documents have been reviewed as part of the pre-operative evaluation. Htn, Hyperlipidemia, essential tremor. Informed Consent: The patient's anesthetic plan and its attendant risks and benefits were discussed with the patient/family/POA. Questions were solicited and answers provided to the satisfaction of the patient/family/POA.
--- NOTE | 2024-06-27 07:33 | WPDHPUPDATE1 ---
History and Physical Update Update Date/Time: 06/27/24 07:33 History and Physical has been reviewed, including an updated exam of the patient. There are NO changes in the patient's condition. Risks, benefits, and alternatives have been discussed and questions answered. Patient agrees to proceed with procedure.
[2024-06-27] MEDS: ceFAZolin 2 GM/D5W 50 ML 2 GM/50 ML BAG IVPB ×3 (07:44→22:03)
[2024-06-27] MEDS: SODIUM CHLORIDE 0.9% IV 37.7 ML, MORPHINE SULFATE INJ (*CRX) 2 MG, ROPivacaine HCL 1% 2... INFILTRATE (08:23)
[2024-06-27] MEDS: ceFAZolin SODIUM 1 GM VIAL 2 GM IV PUSH (10:48)
[2024-06-27] MEDS: TRANEXAMIC ACID 1,000 MG/10 ML AMPUL 1000 MG IV PUSH (10:52)
--- NOTE | 2024-06-27 11:33 | W.PM.PROC2 ---
Procedure Note - Detailed Date of Procedure 06/27/24 Pre-op Diagnosis oa right knee Post-op Diagnosis Same Procedure Performed Right total knee arthroplasty Surgeon Timi Asher MD Director Of Consulting Services Brandy Anesthesia General Description of Procedure Patient was brought to the operating room and general anesthesia was administered. He received 2 g of Ancef weight based vancomycin 1 g of TXA preoperatively and the right knee was prepped draped usual fashion. Under anesthesia he had about a 5 or 6 degree flexion contracture. His valgus deformity partially corrected. Limb was exsanguinated tourniquet elevated to 250 mmHg. A 7 in longitudinal midline incision was used and a vastus medialis splitting approach utilizing splitting the vastus medialis at the level of the superior pole patella. Partial excision of infrapatellar fat pad was performed. Quadriceps synovectomy carried out suprapatellar fat pad excised. The patella had normal articular cartilage except for the far medial facet had wear. I felt it was very suitable for non resurfacing. A guide sonu was inserted on femoral canal after aspiration of canal contents. Using the 5 degree valgus cutting bushing with an entrance site ideal to the low point of the trochlear groove, 10 mm of bone was removed the distal femur. This removed about 5 or 6 from the lateral side. Next the tibial plateau was cut. Cut was made perpendicular to the axis of the tibia. This was made just under the articular cartilage of the posterior aspect of the medial tibial plateau which caused the cut to be under the low point of the where area of the lateral tibial plateau. Discus remnants were excised and the PCL was recessed. Flexion gap was assessed and measured a tight 8 mm medially and 14 or 15 mm laterally. The femoral sizing guide was applied the distal femur and 7? seemed to be externally rotated relative to [place]ites[place] line and 6? matched it better. Posterior referencing pinholes were placed at 6? of external rotation relative to the posterior femoral condyles. Size 70 cutting block was applied. This floated off the anterior cortex a couple of mm AP and chamfer cuts were made. The trial component fit line to line medial to lateral. The tibial trial was inserted in flexion and we noted that the medial side was noticeably tighter than the lateral side still. The tibia was subluxed anteriorly with care to taken to protect the medial capsular insertion and the tibia was sized to a size 75 vanguard. At the proper rotation this fit line to line posterolateral to anteromedial. This was punched and we trialed. The 10 insert was too loose at 90? particularly laterally. The 11 was more appropriate but was tight medially with almost no translation with anterior posterior drawer at 90? medially and this distracted the lateral side open a little bit. I did not feel this was acceptable and I felt we needed to apply some additional external rotation to the femur. We removed the medial fixation pin from the size 67.5 cutting block and impacted the lateral and in the posterior incision in hole and externally rotated about 1-1/2 degrees so that this would take an additional 1/2 mm of bone off of the posterior aspect of the medial femoral condyle to balance the flexion gap better. AP and chamfer cuts were revised. The size 67.5 femoral component fit nicely and on trialing with the 11 insert we now had appropriate balance with 1 mm of medial opening 2 mm of lateral opening at 90? valgus and varus stress. However we were tight in extension. There is no play medially or laterally and we lacked about 5 or 7?. External 2 mm of bone removed from the distal femur chamfer cuts revisited and residual posterior femoral bone removed at this time. Central posterior capsular release was performed. This time on read trialed on the knee still lacked a few degrees of extension but had 2 mm of play medially no play laterally. Therefore a posterolateral release as a kenny the level of the tibial cut surface between the popliteus tendon and the lateral collateral and over the surface of the lateral collateral and then ileal tibial band released transversely 1 cm proximal cut surface of the tibia. Also, a more thorough posterior capsular release was performed from the medial to the lateral origins of the medial lateral heads of the gastrocnemius. With this done on retrialing the knee had almost full extension but still had a bounce test that was positive. In this position there was a mm of opening medially and laterally so it still seemed fairly tight therefore we removed an additional 1 mm of bone from the distal femur revised chamfer cuts and on read trialing now the knee came out to full extension with negative bounce, 1- 2 mm of medial and lateral opening in full extension and with the arthrotomy approximated with towel clips there is still absence of any bounce on testing. [place] flexion was to 135 appropriate stability throughout. The tourniquet had been let down at 90 minutes at this point I then was re-exsanguinated her get elevated to 275 mmHg. Leg her drilled the femur the bony surfaces irrigated step shows used to make multiple perforations in the tibial plateau and distal femur. Bone quality was excellent. The bony surfaces were thoroughly irrigated and dried. Two batches of methylmethacrylate 1 with gentamicin powder used. Cement immediately applied the size 75 vanguard tibial component and a 67.5 right cruciate retaining femoral component. Cement applied the tibial plateau and the canal pressurized tibial component fully seated cement applied the femur the femoral component fully seated the knee brought into extension with a 12 mm head and insert. Knee brought in extension for pressurization cement tourniquet was released total tourniquet time 105 minutes. After cement hardening excess cement was sought for removed and hemostasis was achieved. We trialed the 11 insert and I thought this felt a little bit loose globally in both flexion extension. We trialed a 12 which had a much better feel to it to anterior posterior drawer and allowed full extension with negative bounce 1 mm medial and lateral opening appropriate anterior drawer stability at 90? allowing 135 of gravity flexion with no anterior drawer at that position. We chose the 12 insert which was placed locked with a locking pin range of motion stability patellar tracking reconfirmed. Local anesthetic cocktail was injected in the periarticular soft tissues. Wound again irrigated with antibiotic solution arthrotomy closed with 2. Vicryl 1. Unidirectional barbed Stratafix suture the split with 1. Vicryl. Skin closed with 2 subcutaneous Vicryl 3-0 subcuticular Monocryl and glue. EBL is 250 cc. He received extra 2 g of Ancef 1 g TXA and I will closure. There were no complications he was transferred postop recovery in stable condition. [facility] Billing Surgery - Charge Forward: Surgery Billing (Right total knee replacement)
--- NOTE | 2024-06-27 11:53 | PM.OP ---
Procedure Note - Brief Procedure Note - Brief Date of procedure: 06/27/24 oa right knee Procedure performed: Right total knee arthroplasty Surgeon: ELMER Warner Findings: 69-year-old male and right total knee arthroplasty on 06/27. I was involved in the procedure including positioning the patient on the OR table and 1st assisting through the time surgery. Total time spent was 3-1/2 hours
--- NOTE | 2024-06-27 12:20 | SUR.PHASEI ---
1145 PATIENT DIAPHORETIC WHEN ARRIVED FROM OR; COOL COMPRESS TO FACE/SCALP; DENIES NAUSEA. BP WNL. 1220 NO LONGER DIAPHORETIC.
[2024-06-27] MEDS: fentaNYL CITRATE INJ (*CRX) 100 MCG/2 ML VIAL 25 MCG IV PUSH (13:05)
--- NOTE | 2024-06-27 14:42 | ADMGEN ---
This patient, Len Leonard, was admitted to -. Patient/family oriented to hospital policies and general routines including ID bracelet, bed and alarms, visiting hours, pain management, procedures, bathroom and other care routines, personal items, smoking policy, room service/diet, and visiting hours. Information on how to activate the Rapid Response Team has been discussed. Patient/Family are encouraged to report perceived risks to care and to ask questions if they do not understand what they are told or what they should do.
[2024-06-27] MEDS: SODIUM CHLORIDE 0.9% IV 1,000 ML 125 ML IV CONT (15:31)
[2024-06-27] MEDS: oxyCODONE HCL (*CRX) 5 MG TAB IR PO ×3 (15:31→21:52)
[2024-06-27] MEDS: ACETAMINOPHEN 325 MG TABLET PO ×3 (15:31→21:52)
--- NOTE | 2024-06-27 16:13 | P.CONIM_ITS ---
Assessment and Plan Assessment and plan (1) Right knee DJD: Qualifiers: Osteoarthritis type: primary Qualified Code(s): M17.11 - Unilateral primary osteoarthritis, right knee Code(s): M17.11 - Unilateral primary osteoarthritis, right knee Status: Acute Assessment and Plan: -right total knee arthroplasty on 06/27 - ambulate with assistance and up to chair - use IS - neurovasc checks - see order for intervals - SCDs - antiemetic p.r.n., analgesics p.r.n. - monitor labs in AM - CBC and BMP - bowel regimen: docusate/senna, polyethylene glycol - PT/OT evaluation and treatment (2) Hypercholesterolemia: Code(s): E78.00 - Pure hypercholesterolemia, unspecified Status: Chronic Assessment and Plan: - continue atorvastatin 40 mg daily (3) Essential (primary) hypertension: Code(s): I10 - Essential (primary) hypertension Status: Chronic Assessment and Plan: - chronic, currently 137/80 - hold lisinopril 20 mg daily - monitor Plan Diet: Regular GI Prophylaxis: Famotidine p.o. DVT Prophylaxis: Shannon Wilosn (06/28) IV fluids: NS 125 mL/hour x8 hours Lines/Tubes: Peripheral IV Code Status: Full code HPI Date of Consult Consult date: 06/27/24 Requesting Physician: Timi Asher MD Primary Care Provider: Cornelius Montanez MD Consult Narrative Reason for consult: Medical Management Narrative: 69 y/o M with PMH of hypertension and hyperlipidemia presents here for an elective right total knee arthroplasty. The patient previously reported ongoing right knee pain for the past few years. He has been treated with mzcy-[id number] anti-inflammatories and cortisone injections. Last steroid injection in February of 2024. He reports brief relief, however did not last. Due to these factors he elected to move forward with surgical management. He underwent a right total knee arthroplasty on 06/27 with Lakeshia BARCLAY. Post-operative he is reporting no nausea or uncontrolled pain. He denies any recent changes to his medications for past medical history. Preop VS: 98.2? F, HR 83, R 16, 133/83, and 97% on RA. Preop workup: No leukocytosis, hemoglobin 13.4, creatinine 0.71 and GFR >60, A1c 5.4%. Review of Systems Review of Systems: All systems reviewed & are unremarkable except as noted in HPI and below [facility] Past Medical History Medical History Male erectile dysfunction, unspecified Glaucoma Malignant neoplasm of prostate dx in 2019, surveillance BPH (benign prostatic hyperplasia) High cholesterol Hypertension Abnormal colonoscopy 06/06 Polyp Repeat 06/11 Surgical History Surgical History History of tonsillectomy History of total right knee replacement (06/2024) History of inguinal hernia repair Left 2014 Family History Family History Mother Family history of respiratory disorder Patient's mother is Parkinsons disease Father Family history of heart disease in male family member before age 55 Hypertension Other Diabetes mellitus Family history of cardiovascular disease Family history of malignant neoplasm Social History Social History Smoking packs per day: 1 Smoking cigarettes per day: 20.0 Years smoked: 5 Smoking pack-years: 5.00 Smoking status: Former smoker Alcohol intake: current Drinks per week: 20 Alcohol use details: on occasion Substance use: never Substance use type: does not use Do You Feel Safe in your Home?: Yes Lack of Transportation: No Lack of Food: Never True Current Housing: I Have Housing Concerned About Future Housing: No Difficulty Paying Gas/Electric Bills: No Difficulty Paying for Meds: No Currently Unemployed: No Education: High School Diploma/GED Difficulty w/ Childcare or Family Care: No Living arrangements: alone Gender identity (if verbalized by the patient): Male Sexual Orientation (if Verbalized by the Patient): Straight or Heterosexual Spiritual care concerns: No Agree to blood products: Yes Meds Home Medications and Allergies Home Medications ?Medication ?Instructions ?Recorded ?Confirmed ?Type wibczukp-gn-dbdvp 300 mcg-K 60 1 tablet PO DAILY 04/06/21 06/27/24 History mcg-lycop 600 mcg-lutein 300 mcg tablet (Men 50 Plus Multivitamin) atorvastatin 40 mg tablet See Rx Instructions .Route 10/22/23 06/27/24 Rx .COMPLEX #90 tabs lisinopril 20 mg tablet See Rx Instructions .Route 02/12/24 06/27/24 Rx .COMPLEX #90 tabs ibuprofen 200 mg capsule 400 mg PO Q6H PRN pain 04/03/24 06/27/24 History UROZINC 400 mg PO DAILY 06/06/24 06/10/24 History latanoprost 0.005 % eye drops 1 drp EACH EYE QPM 06/06/24 06/27/24 History sildenafil 100 mg tablet 100 mg PO DAILY PRN sexual 06/10/24 06/10/24 Rx activity #7 tabs Allergies Allergy/AdvReac Type Severity Reaction Status Date / Time No Known Allergies Allergy Verified 06/27/24 08:41 Vital Signs Vital Signs - 24 hr 06/27/24 05:57 06/27/24 11:45 06/27/24 12:00 Temperature 98.4 F 98.1 F Pulse Rate 81 95 83 Respiratory Rate 18 12 12 Blood Pressure 123/79 148/79 H 130/77 Pulse Oximetry 99 99 98 Oxygen Delivery Room Air Simple Face Mask Simple Face Mask Oxygen Flow Rate 8 8 06/27/24 12:15 06/27/24 12:30 06/27/24 12:45 Temperature Pulse Rate 72 78 66 Respiratory Rate 12 16 17 Blood Pressure 132/78 135/86 126/79 Pulse Oximetry 92 97 97 Oxygen Delivery Room Air Room Air Room Air Oxygen Flow Rate 06/27/24 13:00 06/27/24 13:15 06/27/24 13:30 Temperature 97.6 F Pulse Rate 67 63 65 Respiratory Rate 12 14 14 Blood Pressure 126/79 124/79 122/77 Pulse Oximetry 97 97 99 Oxygen Delivery Room Air Room Air Room Air Oxygen Flow Rate 06/27/24 13:45 06/27/24 14:00 06/27/24 14:15 Temperature Pulse Rate 65 68 63 Respiratory Rate 14 17 11 L Blood Pressure 128/81 133/86 134/84 Pulse Oximetry 99 100 100 Oxygen Delivery Room Air Room Air Room Air Oxygen Flow Rate 06/27/24 14:37 06/27/24 14:52 06/27/24 15:22 Temperature 97.2 F L 97.4 F L 97.5 F L Pulse Rate 67 67 72 Respiratory Rate 16 16 16 Blood Pressure 136/71 141/78 H 137/80 Pulse Oximetry 100 99 98 Oxygen Delivery Oxygen Flow Rate Exam Const: General: comfortable and no acute distress HENMT: Face/Nose/Sinus: Normal nares present Mouth: Yes moist mucous membranes Eyes: General: appearance normal, both eyes and all related structures Sclera: sclerae normal Pupils: Equal, round and reactive pupils present EOM: EOMs intact bilaterally Resp: Effort & Inspection: normal respiratory effort Auscultation: clear to auscultation bilaterally Cardio: Rate: regular rate Rhythm: regular rhythm Other: S1-S2 present without murmur, rub, ectopy GI: Other: Abdomen soft, nondistended, nontender. Normoactive bowel sounds in all quadrants. Skin: General skin exam: normal color and no rashes or lesions noted Other: Postoperative incision to right knee, mild edema. Good ROM. Dressing CDI. Neuro: Speech: normal speech Motor exam (neuro): 5/5 motor strength present throughout Sensory Exam: normal sensation Other: A/Ox4 Extrem: General: normal exam except as noted Psych: Mental Status: mental status grossly normal Affect: normal affect Other: Good insight and judgment, very pleasant Quality VTE Prophylaxis VTE prophylaxis: mechanical ordered Hospitalist [facility] Advance Care Plan I have confirmed that the patient's Advanced Care Plan is present, code status is documented, or surrogate decision maker is listed in patient medical record.: Yes Medication Reconciliation I have utilized all available resources to obtain, update and review the pat ients current medications (includes all prescriptions, OTC, herbals, cannabis, and nutritional supplements).: Yes
[2024-06-27] MEDS: KETOROLAC 15 MG/ML VIAL (*BKC) IV PUSH (18:15)
[2024-06-27] MEDS: VANCOMYCIN 1,000 MG/NS 250 ML 1,000 MG/250 ML BAG 250 MG IVPB (18:15)
[2024-06-27] MEDS: SENNA/DOCUSATE SODIUM TABLET 2 TAB PO (18:15)
[2024-06-27] MEDS: LATANOPROST 0.005% OP SOLN 2.5 ML BTL 1 DROP EACH EYE (18:17)
[2024-06-27] MEDS: FAMOTIDINE 20 MG TABLET PO (21:52)
[2024-06-28 01:13] VITALS: BP 112/61; PULSE 65; RESP 14; TEMP 37; O2SAT 99
[2024-06-28] MEDS: ACETAMINOPHEN 325 MG TABLET PO ×3 (01:14→10:47)
[2024-06-28] MEDS: KETOROLAC 15 MG/ML VIAL (*BKC) IV PUSH (01:15)
[2024-06-28] MEDS: oxyCODONE HCL (*CRX) 5 MG TAB IR PO ×3 (01:18→10:47)
[2024-06-28 04:06] VITALS: BP 103/62; PULSE 69; RESP 16; TEMP 37; O2SAT 97
[2024-06-28 05:12] LABS: Alanine Aminotransferase 17 U/L (6-50); Albumin Level 2.9 g/dL (3.5-5.1); Alkaline Phosphatase 40 U/L (38-126); Anion Gap 5 mmol/L (4-12); Aspartate Amino Transferase 22 U/L (17-59); Bilirubin,Total 0.5 mg/dL (0.2-1.3); Blood Urea Nitrogen 15 mg/dL (9-20); Calcium 7.5 mg/dL (8.4-10.2); Carbon Dioxide 23 mmol/L (22-30); Chloride 109 mmol/L (98-107); Estimated CRCL calculation 88 ml/min; Estimated Glomerular Filt Rate > 60; Glucose 102 mg/dL (65-110); Potassium 4.1 mmol/L (3.4-5.0); Sodium 137 mmol/L (137-145)
[2024-06-28] MEDS: ceFAZolin 2 GM/D5W 50 ML 2 GM/50 ML BAG IVPB (06:00)
[2024-06-28 06:22] LABS: Basophils Percent Auto 0.2 % (0.2-1.2); Eosinophils Percent Auto 0.1 % (0-4.4); Hematocrit 30.6 % (42.0-52.0); Hemoglobin 9.6 g/dL (14.0-18.0); Immature Granulocyte Absolute 0.04 K/mm3 (0.00-0.031); Immature Granulocyte Percent A 0.4 % (0-0.5); Lymphocytes Absolute Auto 1.44 K/mm3 (0.9-3.2); Lymphocytes Percent Auto 15.1 % (18.3-44.2); Mean Corpuscular HGB Conc 31.4 g/dl (32-36); Mean Corpuscular Hemoglobin 30.9 pg (26-34); Mean Corpuscular Volume 98.4 fl (80-100); Mean Platelet Volume 11.4 fl (7.4-10.4); Monocytes Absolute Auto 0.8 K/mm3 (0.1-0.6); Monocytes Percent Auto 8.1 % (2.6-8.5); Neutrophils Absolute Auto 7.2 K/mm3 (1.3-6.7); Neutrophils Percent Auto 76.1 % (45.5-73.1); Platelet Count Result 169 k/mm3 (150-375); Red Blood Count 3.11 M/mm3 (4.6-6.20); Red Cell Distribution Width 12.5 % (11.5-14.5); White Blood Count 9.5 K/mm3 (4.5-10.0)
[2024-06-28] MEDS: VANCOMYCIN 1,000 MG/NS 250 ML 1,000 MG/250 ML BAG 250 MG IVPB (06:39)
--- NOTE | 2024-06-28 08:33 | PM.IMCN ---
Assessment and Plan Assessment and plan (1) Right knee DJD: Qualifiers: Osteoarthritis type: primary Qualified Code(s): M17.11 - Unilateral primary osteoarthritis, right knee Code(s): M17.11 - Unilateral primary osteoarthritis, right knee Status: Acute Assessment and Plan: -right total knee arthroplasty on 06/27 - ambulate with assistance and up to chair - use IS - neurovasc checks - see order for intervals - SCDs - antiemetic p.r.n., analgesics p.r.n. - monitor daily labs - bowel regimen: docusate/senna, polyethylene glycol - PT/OT evaluation and treatment possible discharge today if stable and doing ok with therapy. (2) Hypercholesterolemia: Code(s): E78.00 - Pure hypercholesterolemia, unspecified Status: Chronic Assessment and Plan: - continue atorvastatin 40 mg daily (3) Essential (primary) hypertension: Code(s): I10 - Essential (primary) hypertension Status: Chronic Assessment and Plan: - chronic, was 103/62 in but no - hold lisinopril 20 mg daily, but ok to restart once discharged. - monitor Plan Diet: Regular GI Prophylaxis: Famotidine p.o. DVT Prophylaxis: Shannon Wilson (06/28) IV fluids: NS 125 mL/hour x8 hours Lines/Tubes: Peripheral IV Code Status: Full code HPI Date of Consult Consult date: 06/28/24 Requesting Physician: Timi Asher MD Primary Care Provider: Cornelius Montanez MD Consult Narrative Reason for consult: med mngmnt Narrative: 69 y/o M with PMH of hypertension and hyperlipidemia presents here for an elective right total knee arthroplasty. Pt underwent a right total knee arthroplasty on 06/27 with Lakeshia BARCLAY. Post-operative he is reporting no nausea or uncontrolled pain. He denies any recent changes to his medications for past medical history. Preop VS: 98.2? F, HR 83, R 16, 133/83, and 97% on RA. Preop workup: No leukocytosis, hemoglobin 13.4, creatinine 0.71 and GFR >60, A1c 5.4%. pt is seen and examined. Pain is well controlled, no nausea. BP reviewed - would be ok to restart lisinopril as it is better now. Disucussed with pt. advised to obtain BP machine and monitor it at home. Review of Systems Review of Systems: All systems reviewed & are unremarkable except as noted in HPI and below [facility] Past Medical History Medical History Male erectile dysfunction, unspecified Glaucoma Malignant neoplasm of prostate dx in 2019, surveillance BPH (benign prostatic hyperplasia) High cholesterol Hypertension Abnormal colonoscopy 06/06 Polyp Repeat 06/11 Surgical History Surgical History History of tonsillectomy History of total right knee replacement (06/2024) History of inguinal hernia repair Left 2014 Family History Family History Mother Family history of respiratory disorder Patient's mother is Parkinsons disease Father Family history of heart disease in male family member before age 55 Hypertension Other Diabetes mellitus Family history of cardiovascular disease Family history of malignant neoplasm Social History Social History Smoking packs per day: 1 Smoking cigarettes per day: 20.0 Years smoked: 5 Smoking pack-years: 5.00 Smoking status: Former smoker Alcohol intake: current Drinks per week: 20 Alcohol use details: on occasion Substance use: never Substance use type: does not use Do You Feel Safe in your Home?: Yes Lack of Transportation: No Lack of Food: Never True Current Housing: I Have Housing Concerned About Future Housing: No Difficulty Paying Gas/Electric Bills: No Difficulty Paying for Meds: No Currently Unemployed: No Education: High School Diploma/GED Difficulty w/ Childcare or Family Care: No Living arrangements: alone Gender identity (if verbalized by the patient): Male Sexual Orientation (if Verbalized by the Patient): Straight or Heterosexual Spiritual care concerns: No Agree to blood products: Yes Meds Home Medications and Allergies Home Medications ?Medication ?Instructions ?Recorded ?Confirmed ?Type plkkslvo-xi-ozwxw 300 mcg-K 60 1 tablet PO DAILY 04/06/21 06/27/24 History mcg-lycop 600 mcg-lutein 300 mcg tablet (Men 50 Plus Multivitamin) atorvastatin 40 mg tablet See Rx Instructions .Route 10/22/23 06/27/24 Rx .COMPLEX #90 tabs lisinopril 20 mg tablet See Rx Instructions .Route 12/23/24 05/08/25 Rx .COMPLEX #90 tabs UROZINC 400 mg PO DAILY 06/06/24 06/10/24 History latanoprost 0.005 % eye drops 1 drp EACH EYE QPM 06/06/24 06/27/24 History sildenafil 100 mg tablet 100 mg PO DAILY PRN sexual 06/10/24 06/10/24 Rx activity #7 tabs acetaminophen 325 mg tablet 325 mg PO Q4H #90 tabs 06/28/24 Rx apixaban 2.5 mg tablet (Eliquis) 2.5 mg PO Q12HR #28 tabs 06/28/24 Rx cefdinir 300 mg capsule 300 mg PO Q12HR #14 caps 06/28/24 Rx celecoxib 200 mg capsule (Celebrex) 200 mg PO DAILY@0800 #60 caps 06/28/24 Rx oxycodone 5 mg tablet 5 mg PO Q4H PRN Pain #40 tabs 06/28/24 Rx polyethylene glycol 3350 17 gram 17 g PO QAM #30 ea 06/28/24 Rx oral powder packet (Miralax) sennosides 8.6 mg-docusate sodium 2 tab PO BID #60 tabs 06/28/24 Rx 50 mg tablet (Senokot-S) Allergies Allergy/AdvReac Type Severity Reaction Status Date / Time No Known Allergies Allergy Verified 06/27/24 08:41 Vital Signs Vital Signs - 24 hr 06/27/24 11:45 06/27/24 12:00 06/27/24 12:15 Temperature 98.1 F Pulse Rate 95 83 72 Respiratory Rate 12 12 12 Blood Pressure 148/79 H 130/77 132/78 Pulse Oximetry 99 98 92 Oxygen Delivery Simple Face Mask Simple Face Mask Room Air Oxygen Flow Rate 8 8 06/27/24 12:30 06/27/24 12:45 06/27/24 13:00 Temperature Pulse Rate 78 66 67 Respiratory Rate 16 17 12 Blood Pressure 135/86 126/79 126/79 Pulse Oximetry 97 97 97 Oxygen Delivery Room Air Room Air Room Air Oxygen Flow Rate 06/27/24 13:15 06/27/24 13:30 06/27/24 13:45 Temperature 97.6 F Pulse Rate 63 65 65 Respiratory Rate 14 14 14 Blood Pressure 124/79 122/77 128/81 Pulse Oximetry 97 99 99 Oxygen Delivery Room Air Room Air Room Air Oxygen Flow Rate 06/27/24 14:00 06/27/24 14:15 06/27/24 14:37 Temperature 97.2 F L Pulse Rate 68 63 67 Respiratory Rate 17 11 L 16 Blood Pressure 133/86 134/84 136/71 Pulse Oximetry 100 100 100 Oxygen Delivery Room Air Room Air Oxygen Flow Rate 06/27/24 14:52 06/27/24 15:22 06/27/24 16:22 Temperature 97.4 F L 97.5 F L 97.8 F Pulse Rate 67 72 93 Respiratory Rate 16 16 16 Blood Pressure 141/78 H 137/80 131/69 Pulse Oximetry 99 98 99 Oxygen Delivery Oxygen Flow Rate 06/27/24 20:11 06/27/24 21:40 06/28/24 01:13 Temperature 98.6 F 98.6 F Pulse Rate 67 65 Respiratory Rate 16 14 Blood Pressure 112/63 112/61 Pulse Oximetry 100 99 Oxygen Delivery Room Air Oxygen Flow Rate 06/28/24 04:06 Temperature 98.6 F Pulse Rate 69 Respiratory Rate 16 Blood Pressure 103/62 Pulse Oximetry 97 Oxygen Delivery Oxygen Flow Rate Exam Const: General: comfortable and no acute distress HENMT: Face/Nose/Sinus: Normal nares present Mouth: Yes moist mucous membranes Eyes: General: appearance normal, both eyes and all related structures Sclera: sclerae normal Pupils: Equal, round and reactive pupils present EOM: EOMs intact bilaterally Resp: Effort & Inspection: normal respiratory effort Auscultation: clear to auscultation bilaterally Cardio: Rate: regular rate Rhythm: regular rhythm Other: S1-S2 present without murmur, rub, ectopy GI: Other: Abdomen soft, nondistended, nontender. Normoactive bowel sounds in all quadrants. Skin: General skin exam: normal color and no rashes or lesions noted Other: Postoperative incision to right knee, mild edema. Good ROM. Dressing CDI. Neuro: Cranial nerves: Yes Equal, round and reactive pupils present Speech: normal speech Motor exam (neuro): 5/5 motor strength present throughout Sensory Exam: normal sensation Other: A/Ox4 Extrem: General: normal exam except as noted Psych: Mental Status: mental status grossly normal Affect: normal affect Other: Good insight and judgment, very pleasant Results Labs 06/28/24 06:11 06/28/24 04:28 Labs: Short CBC 06/28/24 Range/Units 06:11 WBC 9.5 (4.5-10.0) K/mm3 Hgb 9.6 L D (14.0-18.0) g/dL Hct 30.6 L (42.0-52.0) % Plt Count 169 (150-375) k/mm3 BMP 06/28/24 04:28 Sodium 137 Potassium 4.1 Chloride 109 H Carbon Dioxide 23 BUN 15 Creatinine 0.71 Glucose 102 Calcium 7.5 L Liver Function 06/28/24 Range/Units 04:28 Total Bilirubin 0.5 (0.2-1.3) mg/dL AST 22 (17-59) U/L ALT 17 (6-50) U/L Alkaline Phosphatase 40 (38-126) U/L Albumin 2.9 L (3.5-5.1) g/dL Quality VTE Prophylaxis VTE prophylaxis: mechanical ordered
[2024-06-28] MEDS: FAMOTIDINE 20 MG TABLET PO (08:45)
[2024-06-28] MEDS: ATORVASTATIN 40 MG TABLET BY MOUTH (08:45)
[2024-06-28] MEDS: CELECOXIB 200 MG CAPSULE PO (08:45)
[2024-06-28] MEDS: SENNA/DOCUSATE SODIUM TABLET 2 TAB PO (08:45)
[2024-06-28] MEDS: APIXABAN 2.5 MG TABLET PO (08:46)
[2024-06-28] MEDS: polyethylene glycoL 3350 17 GM POWD.PACK PO (08:46)
[2024-06-28] MEDS: CEFDINIR 300 MG CAPSULE PO (08:46)
[2024-06-28 08:56] VITALS: BP 127/66; PULSE 76; RESP 18; O2SAT 96
--- NOTE | 2024-06-28 09:20 | P.PNOP_ITS ---
Subjective Subjective Date/Time Seen: 06/28/24 09:20 Interval history: Postop day 1 patient is alert. He is afebrile vital signs are stable. Morning labs are noted. Patient has been up to the restroom multiple times overnight. He is urinating well. Overall pain is well controlled. Neurovascularly he is intact. Dressing is dry and intact. He has aoxp-rf-ffmocojn swelling in the knee. He is able do a straight leg raise in the bed. Overall patient is doing very well. Will plan have the patient work with Physical therapy this morning and if he remains comfortable he will be discharged home. If he feels he needs a 2nd therapy session that he will stay till the afternoon to have that be discharged home early this afternoon. Objective Data Vital Signs Vital Signs: Vital Signs - 24 hr 06/27/24 11:45 06/27/24 12:00 06/27/24 12:15 Temperature 98.1 F Pulse Rate 95 83 72 Respiratory Rate 12 12 12 Blood Pressure 148/79 H 130/77 132/78 Pulse Oximetry 99 98 92 Oxygen Delivery Simple Face Mask Simple Face Mask Room Air Oxygen Flow Rate 8 8 06/27/24 12:30 06/27/24 12:45 06/27/24 13:00 Temperature Pulse Rate 78 66 67 Respiratory Rate 16 17 12 Blood Pressure 135/86 126/79 126/79 Pulse Oximetry 97 97 97 Oxygen Delivery Room Air Room Air Room Air Oxygen Flow Rate 06/27/24 13:15 06/27/24 13:30 06/27/24 13:45 Temperature 97.6 F Pulse Rate 63 65 65 Respiratory Rate 14 14 14 Blood Pressure 124/79 122/77 128/81 Pulse Oximetry 97 99 99 Oxygen Delivery Room Air Room Air Room Air Oxygen Flow Rate 06/27/24 14:00 06/27/24 14:15 06/27/24 14:37 Temperature 97.2 F L Pulse Rate 68 63 67 Respiratory Rate 17 11 L 16 Blood Pressure 133/86 134/84 136/71 Pulse Oximetry 100 100 100 Oxygen Delivery Room Air Room Air Oxygen Flow Rate 06/27/24 14:52 06/27/24 15:22 06/27/24 16:22 Temperature 97.4 F L 97.5 F L 97.8 F Pulse Rate 67 72 93 Respiratory Rate 16 16 16 Blood Pressure 141/78 H 137/80 131/69 Pulse Oximetry 99 98 99 Oxygen Delivery Oxygen Flow Rate 06/27/24 20:11 06/27/24 21:40 06/28/24 01:13 Temperature 98.6 F 98.6 F Pulse Rate 67 65 Respiratory Rate 16 14 Blood Pressure 112/63 112/61 Pulse Oximetry 100 99 Oxygen Delivery Room Air Oxygen Flow Rate 06/28/24 04:06 06/28/24 07:49 06/28/24 08:56 Temperature 98.6 F Pulse Rate 69 Respiratory Rate 16 Blood Pressure 103/62 Pulse Oximetry 97 Oxygen Delivery Room Air Room Air Oxygen Flow Rate 06/28/24 08:56 Temperature Pulse Rate 76 Respiratory Rate 18 Blood Pressure 127/66 Pulse Oximetry 96 Oxygen Delivery Oxygen Flow Rate Intake/Output Intake/Output: Intake & Output 06/25/24 06/26/24 06/27/24 06/28/24 23:59 23:59 23:59 23:59 Intake Total 3230 500 Balance 3230 500 Meds/Results Medications: Active Medications Generic Name Dose Route Start Last Admin Trade Name Freq PRN Reason Stop Dose Admin Acetaminophen 325 mg 06/27/24 14:00 06/28/24 05:56 Acetaminophen 325 Mg Tablet PO 325 mg Q4H MILI Administration Apixaban 2.5 mg 06/28/24 09:00 06/28/24 08:46 Apixaban 2.5 Mg Tablet PO 07/09/24 21:01 2.5 mg Q12HR MILI Administration Atorvastatin Calcium 40 mg 06/28/24 09:00 06/28/24 08:45 Atorvastatin 40 Mg Tablet BY MOUTH 40 mg DAILY MILI Administration Benzocaine 1 lozenge 06/27/24 17:01 Benzocaine/Menthol (*Bkc) 18 Ea Lozenge PO PRN PRN Sore Throat Cefdinir 300 mg 06/28/24 09:00 06/28/24 08:46 Cefdinir 300 Mg Capsule PO 300 mg Q12HR MILI Administration Celecoxib 200 mg 06/28/24 08:00 06/28/24 08:45 Celecoxib 200 Mg Capsule PO 200 mg DAILY@0800 MILI Administration Diphenhydramine HCl 25 mg 06/27/24 14:37 Diphenhydramine Hcl Inj 50 Mg/Ml Vial IV PUSH Q6H PRN Itching Famotidine 20 mg 06/27/24 21:00 06/28/24 08:45 Famotidine 20 Mg Tablet PO 20 mg Q12HR MILI Administration Latanoprost 1 drop 06/27/24 18:00 06/27/24 18:17 Latanoprost 0.005% Op Soln 2.5 Ml Btl EACH EYE 1 drop QPM MILI Administration Morphine Sulfate 2 mg 06/27/24 14:37 Morphine Sulfate (*Crx) 2 Mg/Ml Inj IV PUSH Q2H PRN Breakthrough Pain Rated 4-6 or NPO Naloxone HCl 0.1 mg 06/27/24 14:37 Naloxone Hcl 0.4 Mg/Ml Vial IV PUSH Q2M PRN Opiate Reversal Ondansetron HCl 4 mg 06/27/24 14:37 Ondansetron Inj 4 Mg/2 Ml Vial IV PUSH Q4H PRN Nausea And Vomiting Oxycodone HCl 5 mg 06/27/24 14:37 06/28/24 05:56 Oxycodone Hcl (*Crx) 5 Mg Tab Ir PO 5 mg Q4H MILI Administration Oxycodone HCl 5 mg 06/27/24 14:37 Oxycodone Hcl (*Crx) 5 Mg Tab Ir PO Q4H PRN Pain Rated 7-10 Polyethylene Glycol 17 gm 06/28/24 09:00 06/28/24 08:46 Polyethylene Glycol 3350 17 Gm Powd.Pack PO 17 gm QAM MILI Administration Senna/Docusate Sodium 2 tab 06/27/24 17:00 06/28/24 08:45 Senna/Docusate Sodium Tablet PO 2 tab BID MILI Administration Radiology Results: ITS Impressions Knee X-Ray 06/27/24 12:05 IMPRESSION: No acute osseous abnormality right knee. Total knee arthroplasty with postoperative changes in the soft tissues.. Labs Labs: Laboratory Results - last 24 hr 06/28/24 06/28/24 04:28 06:11 WBC 9.5 RBC 3.11 L Hgb 9.6 L D Hct 30.6 L MCV 98.4 MCH 30.9 MCHC 31.4 L RDW 12.5 Plt Count 169 MPV 11.4 H Immature Gran % (Auto) 0.4 Neut % (Auto) 76.1 H Lymph % (Auto) 15.1 L Saunders % (Auto) 8.1 Eos % (Auto) 0.1 Baso % (Auto) 0.2 Lymph # (Auto) 1.44 Saunders # (Auto) 0.8 H Eos # (Auto) 0.0 Baso # (Auto) 0.0 Abs Immat Gran (auto) 0.04 H Absolute Neuts (auto) 7.2 H Absolute Nucleated RBC 0.000 Nucleated RBC % 0.0 Sodium 137 Potassium 4.1 Chloride 109 H Carbon Dioxide 23 Anion Gap 5 BUN 15 Creatinine 0.71 Estim Creat Clear Calc 88 Estimated GFR > 60 Glucose 102 Calcium 7.5 L Total Bilirubin 0.5 AST 22 ALT 17 Alkaline Phosphatase 40 Total Protein 5.0 L Albumin 2.9 L
== END 2024-06-28 11:16 | disposition home health service (06) ==
LOC: ANHSURGERY 05:52 → ANH2MED 14:45
PROVIDERS: Physician Assistant Surgical; PCP Family Medicine Adolescent Medicine; Visit Provider Orthopaedic Surgery
PROC: (CPT 27447; principal; 2024-06-27 07:30)
DX: M17.11 Unilateral primary osteoarthritis, right knee (principal); I10 Essential (primary) hypertension; E78.00 Pure hypercholesterolemia, unspecified; G25.0 Essential tremor; Z79.1 Long term (current) use of non-steroidal anti-inflammatories (NSAID); Z98.890 Other specified postprocedural states; Z87.891 Personal history of nicotine dependence; Z80.9 Family history of malignant neoplasm, unspecified; Z82.49 Family history of ischemic heart disease and other diseases of the circulatory system
CPT/HCPCS: 27447; 36415; 73560; 80053; 85025; 86850; 86900; 86901; 97110; 97161; 97165; A9270; C1713; C1776; J0171; J0690; J1100; J1171; J1885; J2003; J2250; J2270; J2405; J2704; J2795; J3010; J3370; J7030; J7120

== ENCOUNTER 2024-07-04 07:55 | Outpatient (CLI) | payer OTHER, SELFPAY ==
--- NOTE | ~2024-07-04 | US_ITS ---
EXAMINATION:US venous doppler LE RT INDICATION:Status post right knee surgery. Edema. TECHNIQUE: Multiple grayscale, color flow and Doppler images of the right lower extremity deep venous systems were obtained and reviewed. COMPARISON:No prior studies for comparison. FINDINGS: The common femoral, superficial femoral and popliteal veins demonstrate normal respiratory variation, augmentation and compressibility. Color flow is also seen within the posterior tibial, pe roneal, greater saphenous and profunda veins. IMPRESSION: 1: No lower extremity deep venous thrombosis. Reviewed, dictated and finalized at location A.
--- OUTSIDE RECORDS SUMMARY | 2024-07-04 07:59 | XMS_ITS | Clinical Summary ---
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
--- OUTSIDE RECORDS SUMMARY | 2024-07-04 07:59 | XMS_ITS | Clinical Summary ---
Author Organization [facility] Address [address] [facility] [place] [address] Care Team Providers Care Director Social Name Role Phone Cornelius Montanez MD Primary Care Provider + Ramiro Garcia MD Unavailable [phone] Source Comments [facility],non-owned Affiliates and Associated Physician Practices is amultiple site organization consisting of ambulatory clinics and hospital sitesin [place], [place], [place] and [place]. This disclosure is being madepursuant to the Care Everywhere program and may not contain all information available regarding this patient. 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
== END 2024-07-04 07:56 | disposition home or self-care (01) ==
PROVIDERS: PCP Family Medicine Adolescent Medicine; Visit Provider Orthopaedic Surgery
DX: R60.9 Edema, unspecified (principal)
CPT/HCPCS: 93971

== ENCOUNTER 2024-08-07 15:05 | Outpatient (CLI) | payer OTHER, SELFPAY ==
--- NOTE | ~2024-08-07 | US_ITS ---
EXAMINATION: US venous doppler LE RT DATE: 08/07/2024 15:42 INDICATION: Right lower limb swelling TECHNIQUE: Grayscale ultrasound images without and with compression and Doppler ultrasound images of the right lower extremity veins were obtained. COMPARISON: None. FINDINGS: The visualized portions of right common femoral vein, profunda (deep) femoral vein, femoral vein, pop liteal vein, peroneal trunk, posterior tibial veins, peroneal veins, gastrocnemius vein and greater s aphenous vein outflow are patent. IMPRESSION: 1. No deep venous thrombosis in the right lower limb. Reviewed, dictated and finalized at location B.
--- OUTSIDE RECORDS SUMMARY | 2024-08-07 17:01 | XMS_ITS | Clinical Summary ---
Author Organization [facility] Address [address] [place] [address] Care Team Providers Care Tromper Name Role Phone Cornelius Montanez MD Primary Care Provider + Ramiro Garcia MD Unavailable [phone] Source Comments [facility],non-owned Affiliates and Associated Physician Practices is amultiple site organization consisting of ambulatory clinics and hospital sitesin [place], [place], [place] and [place]. This disclosure is being madepursuant to the Care Everywhere program and may not contain all information available regarding this patient. 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
--- OUTSIDE RECORDS SUMMARY | 2024-08-07 17:01 | XMS_ITS | Clinical Summary ---
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
== END 2024-08-07 15:06 | disposition home or self-care (01) ==
PROVIDERS: PCP Family Medicine Adolescent Medicine; Visit Provider Orthopaedic Surgery
DX: R60.0 Localized edema (principal)
CPT/HCPCS: 93971

== ENCOUNTER 2024-08-26 09:00 | Outpatient (RCR) | payer OTHER, SELFPAY ==
--- NOTE | 2024-07-29 10:07 | OPREHPOC ---
Outpatient Therapy Plan of Care This is a Multidisciplinary Plan of Care that may contain components documented by all disciplines (PT, OT, and ST.) PT Problem 1 PT Problem #1 Knowledge Deficit PT Goal 1 Goal / Goal Update *independent with HEP Target Visit 8 PT Problem 2 PT Problem #2 Pain PT Goal 1 Goal / Goal Update * pt report pain rating at worst of 2/10 Target Visit 8 PT Problem 3 PT Problem #3 Impaired Flexibility PT Goal 1 Goal / Goal Update Increase active ROM of R knee, to improve transfer and gait skills in sitting 1* flexion 120' 2* extension 0' Target Visit 8 PT Problem 4 PT Problem #4 Impaired Strength PT Goal 1 Goal / Goal Update *improve strength of R knee to improve transfer and mobility skills: 1* sit/stand without use of UE x 5 reps from 18 seat 2* ambulate with full knee extension at stance phase of gait Target Visit 8 PT Problem 5 PT Problem #5 Impaired Functional Mobility PT Goal 1 Goal / Goal Update 1* 5 reps sit/stand time of 19 seconds 2* 2 minute walking test distance of 325' 3*up/down 12 steps with one hand railing and alternate step pattern 4* pt report walking in his yard/uneven ground, without any issues Target Visit 8
--- NOTE | 2024-07-29 10:07 | PTOPEVAL1 ---
Assessment and note entered by Elli Yin, PT Evaluation Information Assessment Status Evaluation ICD-10 Condition Codes (PT) Pain in right knee M25.561,Abnormalities of gait and mobility R26.9,Weakness R53.1,Aftercare following joint replacement surgery Z47.1 Onset 06-27-24 Subjective Information had HH therapy, completed last week; now use large base quad cane, some times in the house do not use the cane; have been doing the exercises at home from therapy; doing OK with in/out car and shower; have basement stairs with one hand railing, have been going down stairs one step at time; swelling and pain are less, but still not have the strength yet; walking short distances in community; activity: prior to surgery, active and independent, hobby of fishing; retired; Reported Pain Level Pain Score Self Report Additional Pain Score Comments pain range in the past few days: 2-4/10; increase pain: reported walking/standing 1 hour decrease pain: taking hydrocodone 4x/day sleeping OK with hydrocodone before bed time Assessment PT Clinical Summary Len is s/p R TKR on 06-27-24. He has completed HH therapy and is using a large based quad cane. LE functional scale rating of 55% limitation in activity level. Prior to surgery, he was active, retired and hobby of fishing. With the evaluation: ROM of R knee: active in sitting (-10') to 110'; passive/stretching (-5') to 120'; 5 reps sit/stand time of 27 seconds with use of 1 UE; 2 minute walking test distance of 230' with large base quad cane. Skilled PT services are indicated for modalities to decrease edema and pain; therapeutic exercises to increase R knee ROM and strength with education for HEP, gait and balance, and progression of gait to without an assistive device as tolerated. Plan of Care Interventions Electrical Stimulation,Intermittent Compression Pump,Manual Therapy,Neuro Re-education,Patient/ Caregiver Education,Therapeutic Activities, Therapeutic Exercise,Other Other Interventions taping PT Services Indicated Yes Treatment Frequency and 2x/wk for 8 visits Duration These treatments will address the objective and functional deficits as defined above. The patient will be advanced safely and appropriately in order for the patient to progress towards his/her prior level of function. Additional exercises will be introduced and as well as a comprehensive home exercise program upon discharge, if needed, ?to ensure carryover of functional gains achieved in the clinic. This treatment plan has been reviewed and agreement upon by the patient.
--- NOTE | 2024-08-26 09:58 | OPREHPOC ---
Outpatient Therapy Plan of Care This is a Multidisciplinary Plan of Care that may contain components documented by all disciplines (PT, OT, and ST.) PT Problem 1 PT Problem #1 Knowledge Deficit PT Goal 1 Goal / Goal Update *independent with HEP Target Visit 8 Progress Met PT Problem 2 PT Problem #2 Pain PT Goal 1 Goal / Goal Update * pt report pain rating at worst of 2/10 Target Visit 8 Progress Met PT Problem 3 PT Problem #3 Impaired Flexibility PT Goal 1 Goal / Goal Update Increase active ROM of R knee, to improve transfer and gait skills in sitting 1* flexion 120' 2* extension 0' Target Visit 8 Progress Met PT Problem 4 PT Problem #4 Impaired Strength PT Goal 1 Goal / Goal Update *improve strength of R knee to improve transfer and mobility skills: 1* sit/stand without use of UE x 5 reps from 18 seat 2* ambulate with full knee extension at stance phase of gait Target Visit 8 Progress Met PT Problem 5 PT Problem #5 Impaired Functional Mobility PT Goal 1 Goal / Goal Update 1* 5 reps sit/stand time of 19 seconds 2* 2 minute walking test distance of 325' 3*up/down 12 steps with one hand railing and alternate step pattern 4* pt report walking in his yard/uneven ground, without any issues Target Visit 8 Progress Met
--- NOTE | 2024-08-26 09:58 | PTOPDC ---
Assessment and note entered by Lowell Shafer, PT Evaluation Information Assessment Status Discharge ICD-10 Condition Codes (PT) Pain in right knee M25.561,Abnormalities of gait and mobility R26.9,Weakness R53.1,Aftercare following joint replacement surgery Z47.1 Onset 06-27-24 Subjective Information had HH therapy, completed last week; now use large base quad cane, some times in the house do not use the cane; have been doing the exercises at home from therapy; doing OK with in/out car and shower; have basement stairs with one hand railing, have been going down stairs one step at time; swelling and pain are less, but still not have the strength yet; walking short distances in community; activity: prior to surgery, active and independent, hobby of fishing; retired; Reported Pain Level Pain Score 0: Self Report Assessment PT Clinical Summary Patient met all goals for therapy and is suitable for discharge to [facility] at this time. He has shown a compensated Trendelenburg leaning onto right leg which he will work to correct through [facility] moving forward. Plan of Care PT Services Indicated Yes
== END 2024-08-26 10:57 | disposition home or self-care (01) ==
LOC: ANHPT 09:00
PROVIDERS: PCP Family Medicine Adolescent Medicine; Visit Provider Physician Assistant Surgical
DX: M17.11 Unilateral primary osteoarthritis, right knee (principal); Z96.651 Presence of right artificial knee joint
CPT/HCPCS: 97110; 97116; 97161; 97530